=== PATIENT | female | born 1985 | race Caucasian/White ===

== ENCOUNTER 2022-05-27 11:18 | Emergency (ER) | payer OTHER ==
[2022-05-27 11:28] VITALS: BP 127/85; PULSE 85; RESP 20; TEMP 97.8; BMI 21.6
== END 2022-05-27 11:52 | disposition home or self-care (01) ==
LOC: FER 11:18
DX: F10.129 Alcohol abuse with intoxication, unspecified (principal); Y90.9 Presence of alcohol in blood, level not specified
CPT/HCPCS: 99283-25